=== PATIENT | female | born 1990 | race Caucasian/White ===

== ENCOUNTER 2017-01-23 10:06 | Emergency (ER) | payer OTHER ==
--- NOTE | 2017-01-23 10:30 | ERNOTE ---
Medical Problem HPI - Narrative Date of Service: 01/23/17 - General Chief Complaint: General Assessment Time Seen by Provider: 01/23/17 10:21 Source: patient, RN notes reviewed Exam Limitations: no limitations - Immun/Allergies/Home Medications Immunizations: IMMUNIZATION HX Immunizations Up to Date Yes Allergies/Adverse Reactions: Allergies No Known Allergies Allergy (Unverified 01/23/17 10:18) Home Medications: HOME MEDICATIONS NK [No Home Medication] 01/23/17 [Last Taken Unknown] - History of Present History Narrative: Marielle is a 26 year old female who presents to the ED by private vehicle for an episode of palpitations and lightheadedness that occurred at 9:30. She was at [employer] [facility] [employer] and was standing while playing the keyboard when the symptoms occurred. This lasted several minutes. She felt like her heart stopped during the episode. She has experienced similar episodes for approximately a year, but none have been this severe or lasted as long. The sensation has currently subsided, but she reports that she feels "out of body." She has an unremarkable medical history. She takes a probiotic supplement but no prescription medications. She had a half cup of coffee this morning, but did not have anything to eat. She reports that she slept well last night. She has not had any recent illnesses or been working out in the heat. Date (Duration): 01/23/17 Time (Timing): 09:30 Timing: resolved prior to arrival Review of Systems - Review of Systems Constitutional: Absent: recent illness, fever, chills, fatigue, malaise EYE: Present: no symptoms reported ENT: Absent: nose congestion, sore throat Respiratory: Absent: shortness of breath, cough Cardiology: Present: palpitations. Absent: chest pain, syncope Gastrointestinal/Abdominal: Absent: nausea, abdominal pain, eating less, drinking less Genitourinary: Absent: other - possible Musculoskeletal: Absent: muscle pain, joint pain Skin: Absent: rash, lesions Neurological: Present: dizziness/light-headedness. Absent: headache, weakness, numbness, tingling Endocrine: Absent: intolerance to heat, increased thirst, unexplained weight loss Hematologic/Lymphatic: Present: no symptoms reported Psych: Absent: anxiety, depressed - Patient's Past Medical History Patient History - Medical: No pertinent hx Patient History - Cardiac/Respiratory: No pertinent hx Patient History - Cancer: No Hx of Cancer Patient History - Surgical Procedures: Tubal Ligation, T & A, Hernia Repair Patient History - Other: None LMP (females 10-50): 1 month - Social History Living Situations: home Psych History: No pertinent hx Smoking Status: Never smoker Alcohol Use: none Drug Use: none - Immunizations Immunizations Up to Date: Yes Physical Exam - Physical Exam General Appearance: Present: wd/wn, alert, no apparent distress Eye Exam: Normal inspection: bilateral Ears, Nose, Throat: Present: normal ENT inspection Neck: Present: normal inspection, nontender, supple, full range of motion. Absent: thyromegaly Respiratory: Present: no respiratory distress, normal breath sounds, no accessory muscle use, lungs clear Cardiovascular/Chest: Present: regular rate, rhythm, no murmur, normal peripheral pulses Extremity Exam: Present: normal inspection, normal range of motion, no edema Skin Exam: Present: normal color, warm/dry ED Progress - Results and Orders Patient's Lab Results:: I have reviewed the patient's lab results. - Vital Signs Patient's Vital Signs:: I have reviewed the patient's vital signs. Vital Signs: Vital Signs 01/23/17 01/23/17 10:13 10:18 Temperature 36.6 C Pulse Rate 87 94 Respiratory 12 12 Rate Blood Pressure 115/85 120/90 O2 Sat by Pulse 100 100 Oximetry - EKG EKG: NSR EKG read: Reviewed by me - Progress/Reassessment Chief Complaint: General Assessment Progress:: Improved Departure - Departure Clinical Impression: Intermittent palpitations Disposition: Home Follow Up Needed Condition: Stable Instructions: Palpitations, [id number] Additional Instructions: Establish with a primary care provider for follow up Return to the ER for worsening or persistent symptoms
[2017-01-23 10:46] LABS: Hematocrit 42.4 % (37.0-47.0); Hemoglobin 14.8 gm/dL (12.5-16.0); Mean Corpuscular Hemoglobin 32.1 pg (27-31); Mean Corpuscular Hgb Conc 34.9 g/dl (32-36); Mean Platelet Volume 8.1 fl (6.0-9.5); Neutrophil # 2.4 K/mm3 (1.3-6.0); Neutrophil % 48.2 % (42-75.0); Platelet Count 237 K/mm3 (150-450); Red Blood Count 4.61 M/mm3 (4.2-5.4); Red Cell Distribution Width 11.7 % (11.5-14.0)
[2017-01-23 11:07] LABS: Albumin * 4.5 gm/dl (3.4-5.0); BUN/Creatinine Ratio 14.4 (9.0-21.6); Bilirubin, Total 0.5 mg/dL (0.0-1.1); Ca. Corrected For Albumin 8.3 mg/dL (8.4-10.2); Potassium 3.7 mmol/L (3.4-4.6); T4 Free * 0.81 ng/dL (0.76-1.46); TSH * 0.961 uIU/mL (0.358-3.74); Total Protein 7.9 gm/dL (6.2-8.2)
[2017-01-23 11:11] LABS: Anion Gap 13.9 mmol/L (6.8-13.8); Carbon Dioxide 26.8 mmol/L (24-32.6)
[2017-01-23 12:03] VITALS: BP 102/74
== END 2017-01-23 11:23 | disposition home or self-care (01) ==
LOC: ER 10:06
DX: R00.2 Palpitations (principal)